=== PATIENT | female | born 1995 | race Caucasian/White ===

== ENCOUNTER 2018-12-20 17:02 | Outpatient (CLI) | payer MEDICAID ==
[~2018-12-20] VITALS: Ht 165.1 cm; Wt 69.5 kg
[~2018-12-20 17:02] MED LIST: DOCU-144 PO; FER325 PO; IBUP-1542 PO; PREN-93 PO
[2018-12-20 17:28] VITALS: Ht 165.1 cm; Wt 69.5 kg
== END 2018-12-20 18:45 | disposition home or self-care (01) ==
LOC: OBT 17:02 → L-D 17:08 → OBT 18:45
PROVIDERS: ATTEND Obstetrics & Gynecology
DX: O36.8330 Maternal care for abnormalities of the fetal heart rate or rhythm, third trimester, not applicable or unspecified (principal); Z3A.39 39 weeks gestation of pregnancy
CPT/HCPCS: 76815; 76818; Z7500; G0463

== ENCOUNTER 2018-12-29 00:15 | Inpatient (IN) | payer MEDICAID ==
[~2018-12-29] VITALS: Ht 167.6 cm; Wt 70.7 kg
[2018-12-29 00:47] VITALS: Ht 167.6 cm; Wt 70.7 kg
[2018-12-29 00:48] VITALS: BP 114/68; PULSE 79; RESP 18
[2018-12-29] MEDS ORDERED: MINERAL OIL LIGHT 10 ML VIAL TOP PRN (01:30)
[2018-12-29] MEDS ORDERED: MISOPROSTOL 200 MCG TAB PR PRN ×4 (01:30→17:00)
[2018-12-29] MEDS ORDERED: METHYLERGONOVINE 0.2 MG INJ IM PRN ×4 (01:30→17:00)
[2018-12-29] MEDS ORDERED: OXYTOCIN 30 UNITS/LR 500 ML IV PRN ×4 (01:30→17:00)
[2018-12-29] MEDS ORDERED: LIDOCAINE 1% (MPF) 30 ML INJ INJ PRN (01:30)
[2018-12-29] MEDS ORDERED: CARBOPROST 250 MCG INJ IM PRN ×4 (01:30→17:00)
[2018-12-29] MEDS ORDERED: OXYTOCIN 30 UNITS/LR 500 ML IV SCH ×6 (01:30→16:53)
[2018-12-29] MEDS ORDERED: IBUPROFEN 600 MG TAB PO PRN (01:30)
[2018-12-29] MEDS: LACTATED RINGER'S 1,000 ML IV SCH ×3 (02:37→12:56)
[2018-12-29] MEDS: MISOPROSTOL 50 MCG CAPSULE PO SCH ×4 (03:10→13:06)
[2018-12-29] MEDS ORDERED: BUTORPHANOL 2 MG INJ IV PRN (06:30)
[2018-12-29] MEDS ORDERED: CEFAZOLIN 2 GM/50 ML (PMX) 50 ML IVPB ONE (15:00)
[2018-12-29] MEDS ORDERED: BENZOCAINE 20% 56 ML SPRAY TOP PRN (17:00)
[2018-12-29] MEDS ORDERED: NACL 0.9% 3 ML SYG IV SCH ×3 (17:00)
[2018-12-29] MEDS ORDERED: WITCH HAZEL/GLYCERIN PAD PR PRN (17:00)
[2018-12-29] MEDS ORDERED: LANOLIN HPA 1 PKT TOP PRN (17:00)
[2018-12-29] MEDS: IBUPROFEN 600 MG TAB PO SCH (18:00)
[2018-12-29 18:09] VITALS: BP 118/66; PULSE 100; RESP 18
[2018-12-29 20:20] VITALS: BP 116/56; PULSE 104; RESP 19
[2018-12-29] MEDS: SENNA/DOCUSATE NA (8.6MG/50MG) TAB PO SCH (21:11)
[2018-12-30] MEDS: IBUPROFEN 600 MG TAB PO SCH ×4 (00:26→17:55)
[2018-12-30 03:20] VITALS: BP 108/55; PULSE 79; RESP 20
[2018-12-30 08:30] VITALS: BP 104/54; PULSE 79; RESP 18
[2018-12-30] MEDS: SENNA/DOCUSATE NA (8.6MG/50MG) TAB PO SCH ×2 (09:22→21:35)
[2018-12-30 16:00] VITALS: BP 109/62; PULSE 79; RESP 18
[2018-12-30 19:55] VITALS: BP 125/66; PULSE 84; RESP 18
[2018-12-31] MEDS: IBUPROFEN 600 MG TAB PO SCH ×3 (00:03→12:00)
[2018-12-31 03:50] VITALS: BP 102/51; PULSE 70; RESP 19
[2018-12-31 08:00] VITALS: BP 100/58; PULSE 70; RESP 16
[2018-12-31] MEDS ORDERED: DIPHTH/TET/ACEL PERTUSS (ADULT) 0.5 ML VIAL IM* ONE (09:00)
[2018-12-31] MEDS ORDERED: MEASLES,MUMPS,RUBELLA VACCINE INJ SC* ONE ×2 (09:00→18:00)
[2018-12-31] MEDS ORDERED: VARICELLA VACCINE LIVE/PF 1,350 UNIT/0.5 ML ML SC* ONE (09:00)
[2018-12-31] MEDS: SENNA/DOCUSATE NA (8.6MG/50MG) TAB PO SCH (10:29)
[2018-12-31] MEDS ORDERED: FERROUS SULFATE (EC) 325 MG TAB PO SCH (12:00)
[2018-12-31 12:50] VITALS: BP_SYST 102; BP_SYST 103; BP_SYST 105; BP_DIAS 54; BP_DIAS 58; BP_DIAS 66; PULSE 75; PULSE 86; PULSE 95
[2018-12-31 16:00] VITALS: BP 109/57; PULSE 87; RESP 18
[2019-01-01] MEDS ORDERED: ASCORBIC ACID 500 MG TAB PO SCH (09:00)
== END 2018-12-31 18:55 | disposition home or self-care (01) | DRG 806 ==
LOC: OBT 00:15 → L-D 00:15 → OBT 01:20 → L-D 01:43 → PP1 16:40
PROVIDERS: ADMIT Obstetrics & Gynecology; ATTEND Obstetrics & Gynecology
PROC: 10E0XZZ Delivery of Products of Conception, External Approach (ICD-10-PCS; principal; 2018-12-29)
PROC: 0KQM0ZZ Repair Perineum Muscle, Open Approach (ICD-10-PCS; 2018-12-29)
DX: O48.0 Post-term pregnancy (principal); D62 Acute posthemorrhagic anemia; Z37.0 Single live birth; O90.81 Anemia of the puerperium; O69.81X0 Labor and delivery complicated by cord around neck, without compression, not applicable or unspecified; O70.1 Second degree perineal laceration during delivery; Z3A.40 40 weeks gestation of pregnancy
CPT/HCPCS: 80307; 85025; 85610; 85730; 86592; 86850; 86900; 86901; 87340; 90716; G0463; J0595; J2590; J7120